=== PATIENT | female | born 1960 | race Caucasian/White ===

== ENCOUNTER 2016-12-10 11:30 | Emergency (ER) | payer BC ==
[~2016-12-10] VITALS: Ht 157.5 cm; Wt 73.9 kg
[2016-12-10] MEDS ORDERED: TOPIRAMATE25 MG PO (12:34)
[2016-12-10] MEDS ORDERED: TRAMADOL HCL50 MG PO (12:35)
[2016-12-10] MEDS ORDERED: CITALOPRAM HBR40 MG PO (12:35)
[2016-12-10 12:37] LABS: HEMATOCRIT 43.7 % (36.0-46.0); MCH 29.1 PG (29.0-34.0); MCHC 32.7 G/DL (30.0-36.0); MEAN PLAT.VOLUME 9.4 uM^3 (9.5-12.4); PLATELET COUNT 278 K/uL (156-360); RBC DIS.WIDTH-CV 12.6 % (11.8-14.6); RBC DIS.WIDTH-SD 41.3 % (39-53); RED BLOOD COUNT 4.91 M/uL (3.80-5.20); WHITE BLOOD COUNT 6.2 K/uL (4.1-10.2)
[2016-12-10 12:52] LABS: CHLORIDE 110 mEq/L (99-109); POTASSIUM 4.3 mEq/L (3.7-5.4)
[2016-12-10 12:53] LABS: SODIUM 142 mEq/L (136-147)
[2016-12-10 12:54] LABS: GLUCOSE 75 mg/dL (70-99)
[2016-12-10 12:56] LABS: ANION GAP 7 MEQ/L (2-14)
[2016-12-10 12:58] LABS: GFR ESTIMATE (CALCULATED) > 59 mL/min/
[2016-12-10 12:59] LABS: UREA NITROGEN (BUN) 13 mg/dL (9-23)
[2016-12-10 13:01] LABS: TROP-I INTERPRETATION NEGATIVE; TROPONIN-I < 0.01 ng/mL (0.0-0.30)
[2016-12-10 13:33] LABS: D-DIMER ELISA 0.27 mg/L FEU (< 0.57)
[2016-12-10 15:31] LABS: TROP-I INTERPRETATION NEGATIVE; TROPONIN-I < 0.01 ng/mL (0.0-0.30)
[2016-12-10 16:30] VITALS: BP 104/59
== END 2016-12-10 16:32 | disposition home or self-care (01) ==
LOC: EME 11:30 → RME 11:30
PROVIDERS: Physician Assistant
DX: R07.9 Chest pain, unspecified (principal); G43.909 Migraine, unspecified, not intractable, without status migrainosus
CPT/HCPCS: 71020; 80048; 84484; 85027; 85379; 93005; 99281; 99284; J1885